=== PATIENT | male | born 2000 | race Caucasian/White ===

== ENCOUNTER 2022-01-04 16:21 | Emergency (ER) | payer BC, MEDICAID | END 2022-01-04 16:57 | disposition home or self-care (01) | LOC: LB.ED 16:21 | DX: S61.214A Laceration without foreign body of right ring finger without damage to nail, initial encounter (principal); W26.8XXA Contact with other sharp object(s), not elsewhere classified, initial encounter | CPT/HCPCS: 12001; 99281; 99282-25 ==